=== PATIENT | male | born 1975 | race American Indian/Alaskan Native ===

== ENCOUNTER 2019-01-05 08:49 | Emergency (ER) | payer OTHER ==
--- NOTE | 2019-01-05 09:17 | Emergency Department Report ---
HPI - General Chief Complaint: Abdominal Pain Time Seen by Provider: 01/05/19 09:16 - HPI HPI: 43 YO MALES COMES TO ER CO BACK PAIN, URINARY FREQUENCY AND HESITANCY FOR 3 DAYS. HE HAS SEEN NO MD. HE HAS TAKEN NOTHING AT HOME. PAIN IS SEVERE AND CRAMPY IN NATURES. POS NAUSEA. NO VOMITING. NO DIARRHEA. ED Past Medical Hx - Past Medical History Previous Medical History?: No - Surgical History Past Surgical History?: No - Family History Family history: no significant - Social History Smoking Status: Current Some Day Smoker Substance Use Type: None - Medications Home Medications: Home Medications Medication Instructions Recorded Confirmed Last Taken Type Tamsulosin [Flomax] 0.4 mg PO QDAY #7 cap 01/05/19 Unknown Rx traMADol [Ultram] 50 mg PO Q6HR PRN #10 tablet 01/05/19 Unknown Rx ED Review of Systems ROS: Stated complaint: ABD/BACK PAIN Other details as noted in HPI Comment: All other systems reviewed and negative Physical Exam - Physical Exam Vital Signs: Vital Signs 01/05/19 09:03 Temperature 97.8 F Pulse Rate 77 Respiratory 18 Rate Blood Pressure 134/90 O2 Sat by Pulse 100 Oximetry Physical Exam: ALERT AND ORIENTED MAEW ABD SOFT NO CVA TENDERNESS AND NO PAIN W PALP ON ABD DENIES TESTICULAR PAIN S1S2 LUNGS CTA ED Course Vital Signs 01/05/19 09:03 Temperature 97.8 F Pulse Rate 77 Respiratory 18 Rate Blood Pressure 134/90 O2 Sat by Pulse 100 Oximetry ED Medical Decision Making - Lab Data Result diagrams: 01/05/19 09:20 01/05/19 09:20 - Radiology Data Radiology results: image reviewed - Medical Decision Making Labs 01/05/19 01/05/19 01/05/19 09:20 09:20 10:45 WBC 14.9 H RBC 5.64 H Hgb 15.6 H Hct 47.6 H MCV 84 MCH 28 MCHC 33 RDW 14.4 Plt Count 166 Lymph % (Auto) 16.2 [place] % (Auto) 8.3 H Eos % (Auto) 1.6 Baso % (Auto) 0.5 Lymph # 2.4 [place] # 1.2 H Eos # 0.2 Baso # 0.1 Seg Neutrophils % 73.4 H Seg Neutrophils # 10.9 H Sodium 143 Potassium 4.4 Chloride 102.6 Carbon Dioxide 27 Anion Gap 18 BUN 15 Creatinine 1.3 Estimated GFR > 60 BUN/Creatinine Ratio 12 Glucose 161 H Calcium 10.4 H Total Bilirubin 0.70 AST 16 ALT 17 Alkaline Phosphatase 75 Total Protein 8.2 Albumin 5.0 Albumin/Globulin Ratio 1.6 Urine Color Yellow Urine Turbidity Clear Urine pH 5.0 Ur Specific [place] 1.019 Urine Protein <15 mg/dl Urine Glucose (UA) Neg Urine Ketones Neg Urine Blood Lg Urine Nitrite Neg Urine Bilirubin Neg Urine Urobilinogen < 2.0 Ur Leukocyte Esterase Neg Urine WBC (Auto) 2.0 Urine RBC (Auto) 42.0 U Epithel Cells (Auto) < 1.0 Urine Mucus 3+ Lab Results 01/05/19 01/05/19 01/05/19 Range/Units 09:20 09:20 10:45 WBC 14.9 H (4.5-11.0) K/mm3 RBC 5.64 H (3.65-5.03) M/mm3 Hgb 15.6 H (11.8-15.2) gm/dl Hct 47.6 H (35.5-45.6) % MCV 84 (84-94) fl MCH 28 (28-32) pg MCHC 33 (32-34) % RDW 14.4 (13.2-15.2) % Plt Count 166 (140-440) K/mm3 Lymph % (Auto) 16.2 (13.4-35.0) % [place] % (Auto) 8.3 H (0.0-7.3) % Eos % (Auto) 1.6 (0.0-4.3) % Baso % (Auto) 0.5 (0.0-1.8) % Lymph # 2.4 (1.2-5.4) K/mm3 [place] # 1.2 H (0.0-0.8) K/mm3 Eos # 0.2 (0.0-0.4) K/mm3 Baso # 0.1 (0.0-0.1) K/mm3 Seg Neutrophils % 73.4 H (40.0-70.0) % Seg Neutrophils # 10.9 H (1.8-7.7) K/mm3 Sodium 143 (137-145) mmol/L Potassium 4.4 (3.6-5.0) mmol/L Chloride 102.6 (98-107) mmol/L Carbon Dioxide 27 (22-30) mmol/L Anion Gap 18 mmol/L BUN 15 (9-20) mg/dL Creatinine 1.3 (0.8-1.5) mg/dL Estimated GFR > 60 ml/min BUN/Creatinine Ratio 12 % Glucose 161 H (75-100) mg/dL Calcium 10.4 H (8.4-10.2) mg/dL Total Bilirubin 0.70 (0.1-1.2) mg/dL AST 16 (5-40) units/L ALT 17 (7-56) units/L Alkaline Phosphatase 75 (35-129) units/L Total Protein 8.2 (6.3-8.2) g/dL Albumin 5.0 (3.9-5) g/dL Albumin/Globulin Ratio 1.6 % Urine Color Yellow (Yellow) Urine Turbidity Clear (Clear) Urine pH 5.0 (5.0-7.0) Ur Specific [place] 1.019 (1.003-1.030) Urine Protein <15 mg/dl (Negative) mg/dL Urine Glucose (UA) Neg (Negative) mg/dL Urine Ketones Neg (Negative) mg/dL Urine Blood Lg (Negative) Urine Nitrite Neg (Negative) Urine Bilirubin Neg (Negative) Urine Urobilinogen < 2.0 (<2.0) mg/dL Ur Leukocyte Esterase Neg (Negative) Urine WBC (Auto) 2.0 (0.0-6.0) /HPF Urine RBC (Auto) 42.0 (0.0-6.0) /HPF U Epithel Cells (Auto) < 1.0 (0-13.0) /HPF Urine Mucus 3+ /HPF NS/PAIN MEDICATION/NAUSEA MEDICATION-- RELIEVED PAIN. HEMATURIA NOTED WHEN URINE WAS SENT TO THE LAB BASED ON PT PRESENTATION AND FINDINGS I SUSPECT HE PASSED A KIDNEY STONE. HE IS BEING DC HOME WITH DC PLAN OF CARE AND UROLOGY FOLLOW UP. HE AND HIS VERBALIZE UNDERSTANDING OF THE PLAN OF CARE. Vital Signs 01/05/19 01/05/19 09:03 13:49 Temperature 97.8 F Pulse Rate 77 76 Respiratory 18 16 Rate Blood Pressure 134/90 Blood Pressure 132/98 [Left] O2 Sat by Pulse 100 100 Oximetry - Differential Diagnosis RO K. STONE. Critical care attestation.: If time is entered above; I have spent that time in minutes in the direct care of this critically ill patient, excluding procedure time. ED Disposition Clinical Impression: Flank pain, Hematuria, Leukocytosis Disposition: DC-01 TO HOME OR SELFCARE Is pt being admited?: No Does the pt Need Aspirin: No Condition: Stable Additional Instructions: HYDRATE WELL WITH WATER MEDS ORDERED MOTRIN OR TYLENOL CAN BE USED FOR MILD PAIN FOLLOW UP WITH UROLOGY SHYLA DIET AND ACTIVITY TOLERATED Prescriptions: Ciprofloxacin HCl [Ciprofloxacin TAB] 500 mg PO Q12HR #20 tab Tamsulosin [Flomax] 0.4 mg PO QDAY #7 cap traMADol [Ultram] 50 mg PO Q6HR PRN #10 tablet PRN Reason: Pain Referrals: [facility] MD KENNY [Primary Care Provider] - 3-5 Days BENOIT HANKINS MD [Staff Physician] - 3-5 Days Forms: Accompanied Note, Work/School Release Form(ED) Time of Disposition: 14:28
[2019-01-05] MEDS ORDERED: IBUPROFEN PO ONE (09:47)
[2019-01-05 10:02] LABS: Alanine Aminotransferase 17 units/L (7-56); BUN/Creatinine Ratio 12; Blood Urea Nitrogen 15 mg/dL (9-20); Calcium 10.4 mg/dL (8.4-10.2); Hemolysis Index 16
[2019-01-05 10:15] LABS: Basophils # (Auto) 0.1 K/mm3 (0.0-0.1); Basophils % (Auto) 0.5 % (0.0-1.8); Eosinophils # (Auto) 0.2 K/mm3 (0.0-0.4); Eosinophils % (Auto) 1.6 % (0.0-4.3); Hematocrit 47.6 % (35.5-45.6); Hemoglobin 15.6 gm/dl (11.8-15.2); Lymphocytes # (Auto) 2.4 K/mm3 (1.2-5.4); Lymphocytes % (Auto) 16.2 % (13.4-35.0); Mean Corpuscular HGB Conc 33 % (32-34); Mean Corpuscular Volume 84 fl (84-94); Monocytes # (Auto) 1.2 K/mm3 (0.0-0.8); Monocytes % (Auto) 8.3 % (0.0-7.3); Platelet Count 166 K/mm3 (140-440); Red Blood Count 5.64 M/mm3 (3.65-5.03); Red Cell Distribution Width 14.4 % (13.2-15.2)
[2019-01-05] MEDS ORDERED: NACL 0.9% 1000 ML 1,000 ML IV ONE (10:22)
[2019-01-05] MEDS ORDERED: ROCEPHIN/NS 1 GM/50 ML 1 GM/50 ML BAG IV ONE (10:23)
[2019-01-05 11:11] LABS: Bilirubin,Urine NEG (Negative); Blood,Urine LG (Negative); Color,Urine Yellow (Yellow); Mucus,Urine 3+ /HPF; Protein,Urine <15 mg/dL mg/dL (Negative); Urobilinogen,Urine < 2.0 mg/dL (<2.0)
[2019-01-05] MEDS ORDERED: TORADOL IV ONE (11:20)
[2019-01-05] MEDS ORDERED: ZOFRAN IV ONE (11:20)
[2019-01-05] MEDS ORDERED: FLOMAX PO ONE (12:20)
[2019-01-05 13:50] VITALS: BP 132/98
--- NOTE | 2019-01-05 14:39 | Cat Scan Report ---
CT ABDOMEN AND PELVIS WITHOUT IV CONTRAST INDICATION: Left flank pain. COMPARISON: None available. TECHNIQUE: All CT scans at this facility use dose modulation, automated exposure control, iterative reconstructi on or weight based dosing, when appropriate, to reduce radiation dose to as low as reasonably achieva ble. FINDINGS: Lung Bases: Clear. Skeletal System: No acute abnormality. ABDOMEN: Liver: Normal. Gallbladder: Normal. Bile Ducts: Normal. Pancreas: Normal. Spleen: Normal. Adrenals: Normal. Right Kidney: Normal. Left Kidney: Normal. Stomach and Bowel: Normal. Lymph Nodes: No significant adenopathy. Aorta: No significant abnormality. Additional Findings: There is a small fat-containing umbilical hernia. PELVIS: Colon: Normal . Urinary Bladder and Distal Ureters: Normal. Appendix: Normal. Lymph Nodes: No significant adenopathy. Additional Findings: None. IMPRESSION: 1. Within the limitations of non-contrast technique, no acute process in the abdomen or pelvis. 2. Incidental findings, as above. Signer Name: Cal Jimenez MD Signed: 01/05/2019 2:34 PM Workstation Name: [id number]
== END 2019-01-05 14:50 | disposition home or self-care (01) ==
LOC: ED 08:49
DX: R31.9 Hematuria, unspecified (principal); D72.829 Elevated white blood cell count, unspecified; Z88.0 Allergy status to penicillin
CPT/HCPCS: 36415; 74176; 80053; 81001; 85025; 87086; 96365; 96375; 99284; J0696; J1885; J2405; J7030